=== PATIENT | female | born 1995 | race Caucasian/White ===

== ENCOUNTER 2019-09-30 14:58 | Inpatient (IN) | payer MEDICAID, SELFPAY ==
[2019-09-30] VITALS (20 sets, daily range): BP systolic 102–139; BP diastolic 60–86; PULSE 69–111; RESP 16–18; TEMP 36.6; O2SAT 90–100
--- NOTE | 2019-09-30 15:08 | PC.NURSE ---
Bedside US by nursing staff noted a breech presentation. Findings relayed to physician.Unofficial US performed by Ge Salgado RN.
--- NOTE | 2019-09-30 15:10 | PC.NURSE ---
Fundal height Fundal height obtained at this time. 28cm noted.
--- NOTE | 2019-09-30 15:11 | US_ITS ---
WS: [id number] US OB limited [id number] REASON FOR EXAM: no care FINDINGS: Breech presentation. No care. Normal amniotic fluid seen. The exam was terminated as Dr. Rahman decided to take the patient to surgery for now. Heart rate was 147 beats pe r minute US/US OB limited [id number] IMPRESSION: Breech presentation
--- NOTE | 2019-09-30 15:16 | PC.NURSE ---
US at bedside for presentation verification
--- NOTE | 2019-09-30 15:40 | ANES.PREANE2 ---
Pre-Anesthetic Assessment Pre-Anesthetic Assessment: Height/Weight: Pulse BP 105 H 139/80 09/30/19 15:04 09/30/19 15:04 Social: Social History: Alcohol (h/o meth use as of last night) and Tobacco Exam: Pre-Anes Outpt Exam: alert, oriented x 3, clear to auscultation bilaterally and regular rate & rhythm Airway: Submandibular: WNL Cervical ROM: WNL MP: 2 Dentition: Other History/ROS: No significant history except as noted Pulmonary: Pulmonary: None reported CV/HEM: CV/HEM: None reported : : None reported Hepatic: Hepatic: None reported GI: GI: None reported Metabolic: Metabolic: DM Musc/skel: Musc/skel: None reported Neuropsych: Neuropsych: None reported Anesthetic Plan: ASA status: 3E Anesthesia: General Risk of > 500 ml blood loss (7ml/kg in children): Yes, adequate IV access and fluids planned Data Anesthesia Cardiac Studies: No Data to Display
[2019-09-30 15:56] LABS: Hepatitis B Surface Antigen Non-Reactive (Nonreactive)
--- NOTE | 2019-09-30 16:04 | PC.NURSE ---
Verbal consent to give updates to Blanca Buck. Pt was not under anesthesia at this time.
[2019-09-30 16:12] LABS: Rapid Plasma Reagin Syphilis Nonreactive (Nonreactive)
[2019-09-30 16:13] LABS: Rubella IgG 35.7 IU/mL (0.0-9.0)
[2019-09-30 16:34] LABS: Hepatitis B Surface Antigen Non-Reactive (Nonreactive)
--- NOTE | 2019-09-30 16:58 | PM.HP ---
Providers/Chief Complaint Admitting Physician: Hebert Rahman MD Chief Complaint: OB TRIAGE History of Present Illness Tish Buck is a 23 year old with an unknown due date. The patient believes she is 5 to 6 months along but has not sought care. Her is complicated by no care, methamphetamine use during including the day prior to admission, type 2 diabetes mellitus not on medications, borderline personality disorder, history of -induced hypertension, history of labor, now with labor, history of shoulder dystocia, history of hemorrhage. The patient presented to labor and delivery triage due to painful contractions that started on the evening of 09/29/2019. The patient admitted to using methamphetamines on 09/29/2019. The patient's contractions continued to worsen and the patient presented on the afternoon of 09/30/2019. At that time she was 6 cm dilated with a bulging bag and in the breech position. The patient was having contractions every 2 to 3 minutes and writhing in pain with them. The patient denies any cough, chest pain, fevers, dysuria, leakage of fluid. She has had some bloody show. Review of Systems General: Reports: Other (Limited due to pain secondary to contractions.) PFSH Acute PFSH: Medical History (Updated 09/30/19 @ 17:11 by Hebert Rahman MD) Borderline personality disorder G tube feedings Social History (Updated 09/30/19 @ 17:09 by Hebert Rahman MD) Smoking and tobacco status: former smoker Alcohol intake: unknown Substance/Drug Use: current Substance/Drug use type: Amphetamines Vitals/I&O/Wt Last Vital Signs Pulse 105 H 09/30/19 15:04 BP 139/80 09/30/19 15:04 Physical Exam Narrative: EXAM NARRATIVE: General: Alert and oriented x3, in significant pain, difficult to get to focus and to redirect. Cardiac: Regular rate and rhythm without murmurs Lungs: Clear to auscultation bilaterally without wheezes, crackles or rhonchi Abdomen: Soft, significant tenderness to palpation of the uterus, fundus is 32 cm. Extremities: Trace edema in the bilateral lower extremities A&P Assessment and plan (1) Diabetes mellitus: Status: Acute (2) induced hypertension: Status: Acute (3) labor: Status: Acute (4) Methamphetamine abuse: Status: Acute (5) Intrauterine : Status: Acute (6) Breech presentation: Status: Acute Additional A&P Information Tish Buck is a 23 year old with an unknown due date. The patient believes she is 5 to 6 months along but has not sought care. Her is complicated by no care, methamphetamine use during including the day prior to admission, type 2 diabetes mellitus not on medications, borderline personality disorder, history of -induced hypertension, history of labor, now with labor, history of shoulder dystocia, history of hemorrhage. The patient is 5 to 6 cm dilated upon admission and royal every 2 to 3 minutes. She is extremely uncomfortable and showing signs of being in active labor. The infant is in the breech position and there is concern that once her water breaks, the infant will descend rapidly. It was difficult to get the patient to redirect and focus, and she began trying to push. With concern for a breech delivery, it was felt best to proceed with section due to the patient being in labor. A quick bedside ultrasound confirmed breech position and showed abundant fluid. The patient could not tolerate further pressure on her uterus to get further dating measurements. The patient was in agreement with the current plan of care. All questions were answered. Attestations Medical Necessity Statement*: The patient will be here for greater than 2 midnights due to routine intrapartum and management of section. 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
[2019-09-30 17:04] LABS: Amphetamines Screen Urine Positive (Negative); Barbiturates Screen Urine Negative (Negative); Benzodiazepines Screen Urine Negative (Negative); Cocaine Screen Urine Negative (Negative); Opiate Screen Urine Negative (Negative); PCP Screen Urine Negative (Negative); THC Screen Urine Negative (Negative)
--- NOTE | 2019-09-30 17:13 | PC.NURSE ---
In PACU, pt resting,respirations even, non-labored.pt sleeping.
--- NOTE | 2019-09-30 17:21 | PM.OP ---
Operative Report Date of procedure: September 30, 2019 Pre-op Diagnosis: 1. Intrauterine at approximately 32 weeks gestation 2. labor 3. Breech presentation 4. No care 5. Type 2 diabetes mellitus without treatment 6. Methamphetamine abuse 7. History of hemorrhage 8. History of shoulder dystocia 9. Borderline personality disorder Post-op Diagnosis: 1. Intrauterine status post primary low transverse section at approximately 32 weeks gestation 2. labor 3. Breech presentation 4. No care 5. Type 2 diabetes mellitus without treatment 6. Methamphetamine abuse 7. History of hemorrhage 8. History of shoulder dystocia 9. Borderline personality disorder 10. Delivery of live infant male Procedure Done: Primary low transverse section Specimens removed/disposition: Placenta sent to pathology Surgeon: Hebert Rahman Anesthesia: General Estimated blood loss (mL): 600 IV fluids (mL): 1,800 Complications: None Condition: stable Brief History: Tish Buck is a 23 year old G3 now P1112 with an unknown due date. The patient believes she is 5 to 6 months along but has not sought care due to having a warrant out for her arrest. Her is complicated by no care, methamphetamine use during including the day prior to admission, type 2 diabetes mellitus not on medications, borderline personality disorder, history of -induced hypertension, history of labor, now with labor, history of shoulder dystocia, history of hemorrhage. The patient presented to labor and delivery triage due to painful contractions that started on the evening of 09/29/2019. The patient admitted to using methamphetamines on 09/29/2019. The patient's contractions continued to worsen and the patient presented on the afternoon of 09/30/2019. At that time she was 6 cm dilated with a bulging bag and in the breech position. The patient was having contractions every 2 to 3 minutes and writhing in pain with them. Due to concern for rapid labor and breech presentation, it was felt best to proceed with emergent section. The patient was in agreement with the plan of care. Procedure: After informed consent was obtained, the patient was taken to the operating room and the patient was prepped and draped in normal sterile fashion in dorsal supine position. General anesthesia was given and adequate anesthesia was confirmed. At 15:33 PM on 09/30/2019, a Pfannenstiel skin incision was made and carried through to the underlying layer of fascia using a scalpel. The fascial incision was then extended laterally using curved Mayos. The fascia was then grasped with Jennifer clamps and the underlying rectus muscles were dissected off taking care to avoid injury to the underlying tissues. The peritoneum was entered bluntly with one digit. It was then bluntly. The bladder blade was placed and the vesicouterine peritoneum was well below the lower uterine segment of the uterus. The uterine incision was made in the lower uterine segment in a transverse fashion with the scalpel at 1535 on 09/30/2019. The amniotic membrane was entered bluntly and a large amount of clear fluid was noted. The infant was in the breech position. The infant's breech was delivered without difficulty. The right arm was then swept inwardly and delivered, followed by the left arm and the head all at once. The delivered easily and atraumatically.. There was no nuchal cord. The mouth and nose were suctioned. The had good tone upon delivery. The cord was clamped and cut and the was handed to the awaiting pediatric nurses and Dr. Del Rio. Traction was placed on the umbilical cord and the umbilical cord from the placenta. The placenta was then manually expressed. The uterus was then exteriorized from the abdomen and a wet lap was used to clear the uterus of clots and debris. The bladder blade was reinserted and the uterine incision was closed using 0 Vicryl in a running locking fashion. A second layer of the same suture was used in the same manner. Excellent hemostasis was obtained. Next the posterior cul-de-sac was inspected and was cleared of any blood. The uterus was then placed back into the abdomen. The gutters were cleared of any further clots and debris and the uterine incision was again inspected and hemostasis was noted. The subfascial tissue was inspected for hemostasis and the peritoneum was closed using 2-0 plain in a running fashion. The fascia was then reapproximated using 0 Vicryl in a running fashion. Subcutaneous tissue was inspected for hemostasis. Yung's fascia was then reapproximated using 3-0 plain in a running fashion. Good hemostasis was noted. The subcutaneous tissue was then reapproximated using a subcuticular stitch. The patient tolerated the procedure well and was recovered in stable condition. Estimated blood loss was 600 mL. Urine in the Queen catheter was clear. The patient was recovered in good condition.
[2019-09-30 17:52] LABS: Basophils % 0.4 %; Eosinophils % 0.3 %; Hemoglobin 12.2 g/dL (11.5-15.3); Lymphocytes # 1.7 10^3/uL (0.8-4.8); Lymphocytes % 19.6 %; Mean Corpuscular HGB Conc 32.1 g/dL (30.0-36.0); Mean Corpuscular Hemoglobin 28.6 pg (28.0-34.0); Mean Corpuscular Volume 89.2 fL (81-99); Monocytes # 0.7 10^3/uL (0.2-0.9); Monocytes % 8.2 %; Neutrophils # 6.3 10^3/uL (1.8-7.7); Neutrophils % 71.2 %; Nucleated Red Blood Cells % 0 %; Platelet Count 230 10^3/cmm (130-400); Red Blood Count 4.26 10^6/uL (4.1-5.3); Red Cell Distribution Width 12.4 % (12.1-15.1); White Blood Count 8.9 10^3/uL (4.0-10.0)
[2019-09-30] MEDS: dextrose 5%-lactated ringers 1,000 ML 125 ML IV (18:04)
[2019-09-30] MEDS: morphine 4 mg/mL SDV 1 mL IVP ×2 (18:11→21:39)
[2019-09-30 18:14] LABS: Estmated Average Glucose 269
[2019-09-30 18:53] LABS: HIV 1 & 2 Antibody Non-Reactive (Non-Reactiv); HIV 1 & 2 Antigen Non-Reactive (Non-Reactiv)
[2019-09-30 23:06] LABS: Glucose Point of Care 241 mg/dL (70-110)
--- NOTE | 2019-09-30 23:30 | PC.NURSE ---
Patient stated I don't want it when this nurse notified her of her insulin dose. Educated on benefits of taking her insulin. Patient stated a second time I don't want it
[2019-10-01 00:45] VITALS: BP 101/60; PULSE 104; RESP 16
[2019-10-01] MEDS: dextrose 5%-lactated ringers 1,000 ML 125 ML IV ×2 (04:44→08:05)
[2019-10-01 06:19] LABS: Hematocrit 31.4 % (37.0-47.0); Hemoglobin 10.1 g/dL (11.5-15.3); Mean Corpuscular HGB Conc 32.2 g/dL (30.0-36.0); Mean Corpuscular Hemoglobin 28.5 pg (28.0-34.0); Mean Corpuscular Volume 88.5 fL (81-99); Mean Platelet Volume 10.5 fL (7.4-10.4); Platelet Count 204 10^3/cmm (130-400); Red Blood Count 3.55 10^6/uL (4.1-5.3); Red Cell Distribution Width 12.3 % (12.1-15.1); White Blood Count 13.6 10^3/uL (4.0-10.0)
[2019-10-01 07:02] LABS: Glucose Point of Care 200 mg/dL (70-110)
[2019-10-01] MEDS: ferrous sulfate EC 325 mg Tablet PO ×2 (08:03→17:34)
[2019-10-01] MEDS: ketorolac 30 mg/mL INJ IVP (08:03)
[2019-10-01] MEDS: prenatal vitamin Capsule 1 CAP PO (08:03)
[2019-10-01] MEDS: metoclopramide 5 mg/mL SDV 2 mL 10 MG IV (08:03)
[2019-10-01] MEDS: famotidine 20 mg/2 mL INJ IVP (08:04)
[2019-10-01] MEDS: lactated ringers 1,000 ML 125 ML IV (08:05)
[2019-10-01] MEDS: citric acid-sodium citrate 30 mL UDC PO (08:05)
--- NOTE | 2019-10-01 08:28 | P.PN_ITS ---
Subjective Subjective: Interval history: The patient has been having some pain with her incision site. She has not requested a significant number of pain medications though. The patient has declined any insulin injections. The patient is also declined fundal massage. She has not allowed nursing to touch her abdomen on multiple occasions. Vitals/I&O/Wt Last Vital Signs Temp 97.9 F 09/30/19 17:20 Pulse 104 H 10/01/19 00:45 Resp 16 10/01/19 00:45 BP 101/60 10/01/19 00:45 Pulse Ox 97 09/30/19 18:11 09/30/19 10/01/19 10/01/19 22:59 06:59 14:59 Intake Total 1800 / 1800 1000 / 2800 Output Total 760 / 760 600 / 1360 Balance 1040 / 1040 400 / 1440 Physical Exam Narrative: EXAM NARRATIVE: General: Alert, somnolent Cardiac: Regular rate and rhythm without murmurs Lungs: Clear to auscultation bilaterally without wheezes, crackles or rhonchi Abdomen: Soft, moderate tenderness over the uterus. Uterus is firm and 1 cm below the umbilicus. Incision site is clean and dry without signs of infection or dehiscence. Extremities: Trace edema in the bilateral lower extremities Urinary Catheter Management^: Queen: Cath Placed During This Visit: yes Reason for Continuing Indwelling Catheter: Required Immobilization for Trauma or Surgery or Anesthesia Urinary Catheter Date of Insertion: 09/30/19 Urinary Catheter Time of Insertion: 15:30 Data : 10/01/19 06:00 A&P Assessment and plan (1) Diabetes mellitus: Status: Acute (2) induced hypertension: Status: Acute (3) labor: Status: Acute (4) Methamphetamine abuse: Status: Acute (5) Intrauterine : Status: Acute (6) Breech presentation: Status: Acute Additional A&P Information Tish Buck is a 23 year old G3 now P1112 with an unknown due date. The patient believes she is 5 to 6 months along but has not sought care. Her is complicated by no care, methamphetamine use during including the day prior to admission, type 2 diabetes mellitus not on medications, borderline personality disorder, history of -induced hypertension, history of labor, now with labor, history of shoulder dystocia, history of hemorrhage, now status post primary low transverse section for labor with infant in the breech position. The patient seems to be doing well overall and is not showing signs of significant complications. She has been refusing multiple areas of care including fundal massage. She allowed me to push on her uterus this time. Her uterus does seem a little bit on the higher side. We will need to continue to encourage fundal massage in case of blood clot. The patient has not passed any gas yet. We will watch for this prior to starting feeds. Overall the patient's pain is controlled well. She has not been asking for frequent pain medications at this time. She is not showing signs of withdrawal actively, however we will need to watch for this this afternoon as well. Plan for discharge home tomorrow if she continues to do well. Attestations Medical Necessity Statement*: The patient continues need inpatient care and will be here for greater than 2 midnights. 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
--- NOTE | 2019-10-01 09:27 | PC.NURSE ---
AT BEDSIDE EXPLAINING LIMITATIONS. PATIENT VERY RELUCTANT TO ALLOW EXAMINATION OF ABD OR TO BE TOUCHED. DR WOULD LIKE HER TO GET UP AND WALK BUT SHE IS STILL DROWSY , NOT YET AGGITATED BUT SENSITIVE.
--- NOTE | 2019-10-01 09:32 | PC.NURSE ---
FUNDUS IS FIRM BUT HIGH AT LEVEL OF UMBILICUS.
[2019-10-01 10:00] VITALS: BP 111/66; PULSE 86; RESP 16; TEMP 36.8
[2019-10-01 12:09] LABS: Glucose Point of Care 192 mg/dL (70-110)
[2019-10-01 16:48] LABS: Glucose Point of Care 321 mg/dL (70-110)
[2019-10-01 16:55] VITALS: BP 103/68; PULSE 118; RESP 19; TEMP 36.9
[2019-10-01 17:34] VITALS: RESP 17
[2019-10-01] MEDS: oxyCODONE-APAP 5-325 mg Tablet PO (17:34)
[2019-10-01] MEDS: docusate sodium 100 mg Capsule PO (17:34)
[2019-10-01 21:50] VITALS: BP 110/71; PULSE 95; RESP 16; TEMP 37
[2019-10-01 22:20] LABS: Glucose Point of Care 127 mg/dL (70-110)
[2019-10-02 04:13] VITALS: BP 110/71; PULSE 93; RESP 16; TEMP 36.8; O2SAT 98
[2019-10-02 06:23] LABS: Glucose Point of Care 103 mg/dL (70-110)
[2019-10-02 08:17] VITALS: RESP 16
[2019-10-02] MEDS: prenatal vitamin Capsule 1 CAP PO (08:17)
[2019-10-02] MEDS: ferrous sulfate EC 325 mg Tablet PO (08:17)
[2019-10-02] MEDS: docusate sodium 100 mg Capsule PO (08:17)
[2019-10-02] MEDS: oxyCODONE-APAP 5-325 mg Tablet PO (08:17)
--- NOTE | 2019-10-02 08:27 | PC.NURSE ---
ENCOURAGED AMBULATION.
--- NOTE | 2019-10-02 08:32 | P.DS_ITS ---
Discharge Providers Date of Admission: 09/30/19 14:58 Date of Discharge: October 02, 2019 Attending Provider at Admission: Hebert Rahman MD Attending Provider at Discharge: Hebert Rahman MD Diagnoses at Discharge Discharge Diagnosis (1) Diabetes mellitus: Status: Acute (2) induced hypertension: Status: Acute (3) labor: Status: Acute (4) Methamphetamine abuse: Status: Acute (5) Intrauterine : Status: Acute (6) Breech presentation: Status: Acute Other Information Additional DC diagnoses/information: Tish Buck is a 23 year old G3 now P11 12 with an unknown due date. The patient believes she is 5 to 6 months along but has not sought care due to having a warrant out for her arrest. Her is complicated by no care, methamphetamine use during including the day prior to admission, type 2 diabetes mellitus not on medications, borderline personality disorder, history of -induced hypertension, history of labor, now with labor, history of shoulder dystocia, history of hemorrhage. Reason for Visit Reason for Visit: OB TRIAGE Hospital Course Hospital Course: Tish Buck is a 23 year old G3 now P1112 with an unknown due date. The patient believes she is 5 to 6 months along but has not sought care due to having a warrant out for her arrest. Her is complicated by no care, methamphetamine use during including the day prior to admission, type 2 diabetes mellitus not on medications, borderline personality disorder, history of -induced hypertension, history of labor, now with labor, history of shoulder dystocia, history of hemorrhage. The patient presented to labor and delivery triage due to painful contractions that started on the evening of 09/29/2019. The patient admitted to using methamphetamines on 09/29/2019. The patient's contractions continued to worsen and the patient presented on the afternoon of 09/30/2019 a few hours after being bailed out of the [facility] retirement. At that time she was 6 cm dilated with a bulging bag and in the breech position. The patient was having contractions every 2 to 3 minutes and writhing in pain with them. Due to concern for rapid labor and breech presentation, it was felt best to proceed with emergent section. The patient was in agreement with the plan of care. The patient had a primary low transverse section with general anesthesia. The patient did not have any complications. Her pain has been well controlled. Her bleeding is decreasing well. She is ambulating, voiding, passing gas and tolerating food by mouth. Currently the patient is doing well. The patient will plan to meet with her aerospace engineer officer armament tomorrow. She will fo llow-up with me in 1 week. Routine post care instructions were discussed. All questions were answered. The patient is in agreement with discharge home at this time. Physical Exam Narrative: EXAM NARRATIVE: General: Alert, somnolent Cardiac: Regular rate and rhythm without murmurs Lungs: Clear to auscultation bilaterally without wheezes, crackles or rhonchi Abdomen: Soft, moderate tenderness over the uterus. Uterus is firm and 1 cm below the umbilicus. Incision site is clean and dry without signs of infection or dehiscence. Extremities: Trace edema in the bilateral lower extremities Urinary Catheter Management^: Queen: Cath Placed During This Visit: yes, but has since been removed by the nurse Reason for Continuing Indwelling Catheter: Perioperative Use in Selected Surgeries Urinary Catheter Date of Insertion: 09/30/19 Urinary Catheter Time of Insertion: 15:30 Date Urinary Catheter Removed: 10/01/19 Time Urinary Catheter Discontinued: 15:00 Discharge Data Data Completed and Pending: Completed Studies During Hospitalization Category Date Time Status US OB limited [id number] Stat Ultrasound 09/30/19 15:11 Completed Pending at discharge Category Date Time Status Pathology: Surgic al [PTH] Routine Pth 09/30/19 17:18 Ordered Pathology: Surgic al [PTH] Routine Pth 09/30/19 20:13 Received Labs from last 24 hours 10/02/19 10/01/19 10/01/19 06:20 22:16 16:45 POC Glucose 103 127 321 10/01/19 11:33 POC Glucose 192 Vitals: Last Vital Signs Temp 98.2 F 10/02/19 04:13 Pulse 93 10/02/19 04:13 Resp 16 10/02/19 08:17 BP 110/71 10/02/19 04:13 Pulse Ox 98 10/02/19 04:13 Discharge Plan Discharge Patient Disposition: Home, Self-Care Condition: Good Prescriptions: New oxycodone-acetaminophen 5-325 mg Tablet 1 tab PO Q6H PRN (Reason: Moderate To Severe Pain) Qty: 10 RF: 0 -U 106.5-1 mg Capsule 1 cap PO BREAKFAST Qty: 30 RF: 0 ibuprofen 800 mg Tablet 800 mg PO TID Qty: 60 RF: 0 ferrous sulfate 325 mg (65 mg iron) Tablet,Delayed Release (Dr/Ec) 325 mg PO BIDWM Qty: 30 RF: 0 metformin 500 mg tablet 500 mg PO BID Qty: 60 RF: 0 Discharge Orders: Discharge Order (Routine); Ordered 10/02/19 Ordered By: Hebert Rahman Referrals: Hebert Rahman MD [Physician] - 1 week Discharge Diet: Advance as tolerated Discharge Activity: Limit activity as instructed Activity Restrictions/Additional Instructions: Nothing per vagina for 6 weeks. No baths. Showers are okay. If you have any concern for infection along your incision site, please seek immediate medical attention. If your bleeding significantly increases, please go to the ER for further evaluation. Do not lift anything over 10 pounds for the first 3 weeks, then gradually increase. Discharge Attestations Time Spent in Discharge Care*: greater than 30 min Quality Metrics Clinical Quality Measures During this hospital stay, did patient experience: None Coding Level of Care Code Acute Manager [employer] for [facility] Fwd Diagnoses Diabetes mellitus E11.9 induced hypertension O13.9 labor O60.00 Methamphetamine abuse F15.10 Intrauterine Z34.90 Breech presentation O32.1XX0
[2019-10-02 09:10] VITALS: BP 124/84; PULSE 107; RESP 15; TEMP 37.2
[2019-10-02 10:02] VITALS: BP 123/79; PULSE 66; RESP 18; TEMP 37
[2019-10-02 10:04] VITALS: BP 123/79; PULSE 66; RESP 18; TEMP 37
== END 2019-10-02 10:15 | disposition home or self-care (01) | DRG 787 ==
LOC: OPOB 15:40 → OBGYN 15:40
PROVIDERS: Admitting Provider Family Medicine; Visit Provider Family Medicine
PROC: 10D00Z1 Extraction of Products of Conception, Low, Open Approach (ICD-10-PCS; CPT 59514; principal; 2019-09-30 15:25)
DX: O60.14X0 Preterm labor third trimester with preterm delivery third trimester, not applicable or unspecified (principal); O99.324 Drug use complicating childbirth; F15.10 Other stimulant abuse, uncomplicated; O24.92 Unspecified diabetes mellitus in childbirth; O32.1XX0 Maternal care for breech presentation, not applicable or unspecified; O16.4 Unspecified maternal hypertension, complicating childbirth; Z3A.32 32 weeks gestation of pregnancy; Z37.0 Single live birth; O75.89 Other specified complications of labor and delivery; F60.3 Borderline personality disorder; Z87.891 Personal history of nicotine dependence
CPT/HCPCS: 12345; 36415; 36416; 51702; 59409; 76815; 80306; 82962; 83036; 85025; 85027; 86592; 86762; 86850; 86900; 87340; 87491; 87591; 87806; 88305; 96372; 96375; 99211; J0330; J0690; J1815; J1885; J2001; J2250; J2270; J2405; J2704; J2765; J3010; J3490; J7030

== ENCOUNTER 2019-11-04 15:00 | Emergency (ER) | payer MEDICAID, SELFPAY ==
[2019-11-04 15:05] VITALS: BP 148/93; PULSE 106; RESP 14; TEMP 37.5; O2SAT 98; BMI 21.0
[2019-11-04 16:25] VITALS: BP 130/98; PULSE 104; RESP 18; O2SAT 99
--- NOTE | 2019-11-04 16:35 | ED_ITS ---
Documented by User: DARIEL Sabillon 11/06/19 07:03 HPI - Female Genitourinary General: Chief complaint: General Medical Stated complaint: POST OP PROBLEMS Time Seen by Provider: 11/04/19 16:16 Source: patient Mode of arrival: ambulatory Limitations: no limitations History of Present Illness: HPI Narrative: Patient is a 23-year-old female who presents to ED today with multiple medical complaints. First of all she tells me she believes her section is not healing fully. Patient had a section approximately 5 weeks ago. She states initially she had an area on the left side that seem to be dehisced and was draining however this has healed but now reports an area to the right side of her incision doing the same. She is reporting several small red bumps to her pubic region and abdomen from shaving. She is complaining of vaginal discharge and vaginal odor that she states is abnormal. She states initially following the section she had a heavy period that eventually turned into a light brown discharge. She states since then she has noticed a white/yellow odorous discharge. She states she is sexually active with one partner and has not had any new partners in the past several months. She states she is not concerned for STDs at this time. She does not complain of any dysuria. She does report some urinary urgency and hesitancy. Patient is not having any abdominal pain or lower pelvic pain. She has not been running fevers. Patient admits to recent methamphetamine use. MD elicited complaint: vaginal discharge and other (c section wound complaint ) Onset (ago): day(s) Associated symptoms: Reports vaginal discharge; Deny abdominal pain, headache(s) or nausea Review of Systems Const: Denies: fever(s), chills, body aches, change in appetite, change in weight, fatigue or malaise GI: Denies: abdominal pain, nausea, vomiting or diarrhea : Reports: difficulty voiding, urinary urgency, urinary hesitancy, vaginal odor and vaginal discharge; Denies: flank pain, dysuria, urinary frequency, dribbling, urinary incontinence, vaginal bleeding or pelvic pain Musc: Denies: neck pain or back pain Skin/Breast: Reports: rash Neuro: Denies: headache(s), numbness in extremities, weakness in extremities or sensory changes PFS ED PFSH: Medical History Borderline personality disorder G tube feedings Social History Smoking and tobacco status: former smoker Alcohol intake: unknown Physical Exam Const: COMMON NORMALS: no acute distress, average body habitus, patient oriented x3, no limitations, healthy appearing, alert and well nourished OTHER: psychomotor agitation consistent with her meth use Resp: COMMON NORMALS: normal respiratory effort and clear to auscultation bilaterally AUSCULTATION: clear to auscultation bilaterally Cardio: COMMON NORMALS: regular rate and regular rhythm RATE: regular rate RHYTHM: regular rhythm GI: COMMON NORMALS: Normal to inspection, nondistended, normoactive bowel sounds present, Soft to palpation, non-tender, No hepatosplenomegaly present and no masses PALPATION: Yes Soft to palpation and Yes No hepatosplenomegaly present OTHER: Patient has fully healed section. There is one small 1 cm area to the furthest right side of the incision that seems to be very mildly dehisced with a very small amount of discharge present; she has folliculitis lesions from shaving to her pubic region and abdomen; non-surgical abdominal exam : COMMON NORMALS: Yes no CVA tenderness BLADDER/KIDNEY EXAM: Yes no CVA tenderness Back/Pelvis: COMMON NORMALS: no CVA tenderness Neuro: COMMON NORMALS: patient oriented x3 SENSORIUM/ORIENTATION: Yes alert Skin: OTHER: see abdomen assessment Course Vital Signs: Vital signs: Vital Signs Temperature 99.5 F 11/04/19 15:05 Pulse Rate 96 11/04/19 17:51 Respiratory Rate 16 11/04/19 17:51 Blood Pressure 128/98 11/04/19 17:51 Pulse Oximetry 96 11/04/19 17:51 MDM - Female MDM Narrative: Medical decision making narrative: Patient states she does not want a pelvic exam and/or STD testing today. She states she will get these [facility]. Given the fact that patient section was approximately 5 weeks ago, the lack of fevers, and no/little pelvic pain my suspicion for endometritis is very low. She was counselled on risks of not doing pelvic exam, STD testing, labs and she seems to understand these. She is agreeable to UA which has been collected-pending a UA/ test results so care will be transferred to Hebert Barrett PA-C. Lab Data: Labs: Lab Results 11/04/19 11/04/19 Range/Units 16:40 17:08 HCG, Qual Negative (Negative) Urine Color Yellow (Yellow) Urine Appearance Clear (CLEAR) Urine pH 6 (5-7) Ur Specific Gravit y 1.015 (1.005-1.030) Urine Protein Neg (Negative) Urine Glucose (UA) 4+ H (Normal) Urine Ketones Negative (Negative) Urine Blood Neg (Negative) Urine Nitrate Negative (Negative) Urine Bilirubin Neg (NEGATIVE) Urine Urobilinogen Neg (Negative) mg/dL Ur Leukocyte Ilana ase Negative (Negative) Discharge Plan Discharge Patient Disposition: Home, Self-Care Clinical Impression: Folliculitis Condition: Stable Prescriptions: New Augmentin 500-125 mg tablet 1 tab PO BID 7 Days Qty: 14 RF: 0 No Action ferrous sulfate 325 mg (65 mg iron) Tablet,Delayed Release (Dr/Ec) 325 mg PO BIDWM Qty: 30 RF: 0 -U 106.5-1 mg Capsule 1 cap PO BREAKFAST Qty: 30 RF: 0 metformin 500 mg tablet 500 mg PO BID Qty: 60 RF: 0 sertraline 25 mg Tablet 25 mg PO DAILY RF: 0 ibuprofen 800 mg tablet 800 mg PO TID PRN (Reason: Pain) RF: 0 Discharge Orders: Discharge Order (Routine); Ordered 11/04/19 Ordered By: Hebert Barrett Referrals: Hebert Rahman MD [Primary Care Provider] - Discharge Diet: Regular Discharge Activity: Resume usual activity Activity Restrictions/Additional Instructions: Follow-up with medical provider as directed in 7-10 days. Take medications as prescribed. Return to the ER or your medical provider if condition worsens. Please read and understand discharge instructions. If any questions, please ask. Discharge Date/Time: 11/04/19 17:52 Sign Out Sign Out Data: Patient Sign Out occurred on 11/04/19 at 17:17. Patient's care was discussed, and care was transferred from to DARIEL Lovell. Coding Level of Care Code ED Software Configuration Engineer for Chg Fwd Exam Detailed Documented by User: DARIEL Lovell 11/05/19 02:25 HPI - Female Genitourinary General: Chief complaint: General Medical Stated complaint: POST OP PROBLEMS Time Seen by Provider: 11/04/19 16:16 PFSH ED PFSH: Medical History Borderline personality disorder G tube feedings Social History Smoking and tobacco status: former smoker Alcohol intake: unknown Course Vital Signs: Vital signs: Vital Signs Temperature 99.5 F 11/04/19 15:05 Pulse Rate 96 11/04/19 17:51 Respiratory Rate 16 11/04/19 17:51 Blood Pressure 128/98 11/04/19 17:51 Pulse Oximetry 96 11/04/19 17:51 MDM - Female MDM Narrative: Medical decision making narrative: I assumed care of patient from Gayatri Raffi around 5 PM today. Gayatri told me the history and physical exam findings and that she is suspicious of patient having some folliculitis based off of physical exam and that she has a very low suspicion for endometritis. UA was unremarkable and did not show any UTI. Patient diagnosed with folliculitis and discharged with a prescription for Augmentin. She was told to follow-up with PCP in 7 to 10 days for reevaluation. Return to ED if symptoms worsen. Patient understood and agreed with plan. Lab Data: Labs: Lab Results 11/04/19 11/04/19 Range/Units 16:40 17:08 HCG, Qual Negative (Negative) Urine Color Yellow (Yellow) Urine Appearance Clear (CLEAR) Urine pH 6 (5-7) Ur Specific Gravit y 1.015 (1.005-1.030) Urine Protein Neg (Negative) Urine Glucose (UA) 4+ H (Normal) Urine Ketones Negative (Negative) Urine Blood Neg (Negative) Urine Nitrate Negative (Negative) Urine Bilirubin Neg (NEGATIVE) Urine Urobilinogen Neg (Negative) mg/dL Ur Leukocyte Ilana ase Negative (Negative) Discharge Plan Discharge Patient Disposition: Home, Self-Care Clinical Impression: Folliculitis Condition: Stable Prescriptions: New Augmentin 500-125 mg tablet 1 tab PO BID 7 Days Qty: 14 RF: 0 No Action ferrous sulfate 325 mg (65 mg iron) Tablet,Delayed Release (Dr/Ec) 325 mg PO BIDWM Qty: 30 RF: 0 -U 106.5-1 mg Capsule 1 cap PO BREAKFAST Qty: 30 RF: 0 metformin 500 mg tablet 500 mg PO BID Qty: 60 RF: 0 sertraline 25 mg Tablet 25 mg PO DAILY RF: 0 ibuprofen 800 mg tablet 800 mg PO TID PRN (Reason: Pain) RF: 0 Discharge Orders: Discharge Order (Routine); Ordered 11/04/19 Ordered By: Hebert Barrett Referrals: Hebert Rahman MD [Primary Care Provider] - Discharge Diet: Regular Discharge Activity: Resume usual activity Activity Restrictions/Additional Instructions: Follow-up with medical provider as directed in 7-10 days. Take medications as prescribed. Return to the ER or your medical provider if condition worsens. Please read and understand discharge instructions. If any questions, please ask. Discharge Date/Time: 11/04/19 17:52 Sign Out Sign Out Data: Patient Sign Out occurred on 11/04/19 at 17:17. Patient's care was discussed, and care was transferred from to DARIEL Lovell. Coding Level of Care Code ED Software Configuration Engineer for Jesusg Fwd Exam Detailed
[2019-11-04 16:58] LABS: HCG, Serum Qual Negative (Negative)
[2019-11-04 17:11] LABS: Add Urine Microscopic? NO
[2019-11-04 17:40] LABS: Protein Urine Neg (Negative); Specific Gravity, Urine 1.015 (1.005-1.030); Urine Appearance Clear (CLEAR); Urine Color Yellow (Yellow); pH Urine 6 (5-7)
[2019-11-04 17:41] LABS: Bilirubin Urine Neg (NEGATIVE); Blood Urine Neg (Negative); Glucose Urine UA 4+ (Normal); Ketones Urine Negative (Negative); Leukocyte Esterase Urine Negative (Negative); Nitrate Urine Negative (Negative); Urobilinogen Urine Neg (Negative)
[2019-11-04 17:51] VITALS: BP 128/98; PULSE 96; RESP 16; O2SAT 96
== END 2019-11-04 17:52 | disposition home or self-care (01) ==
PROVIDERS: Physician Assistant; Emergency Provider Physician Assistant; PCP Family Medicine
DX: L73.9 Follicular disorder, unspecified (principal); Z87.891 Personal history of nicotine dependence
CPT/HCPCS: 12345; 36415; 81003; 84703; 99281; 99282

== ENCOUNTER 2019-12-24 10:16 | Emergency (ER) | payer MEDICAID, SELFPAY ==
[2019-12-24 10:21] VITALS: BP 151/101; PULSE 102; RESP 16; TEMP 36.8; O2SAT 100; BMI 21.0
[2019-12-24 10:33] VITALS: BP 141/102; PULSE 110; RESP 17; O2SAT 97
[2019-12-24] MEDS: diphenhydrAMINE 50 mg/mL SDV 1mL IVP (10:39)
[2019-12-24] MEDS: sodium chloride 0.9% 500 ML 999 ML IV (10:39)
[2019-12-24] MEDS: dexamethasone 4 mg/mL INJ 8 MG IVP (10:41)
[2019-12-24] MEDS: famotidine 20 mg/2 mL INJ 40 MG IVP (10:44)
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
--- NOTE | 2019-12-24 11:12 | PC.NURSE ---
REPORT RECEIVED REPORT FROM [facility].
--- NOTE | 2019-12-24 11:45 | PC.NURSE ---
WHILE AT BEDSIDE PT IS IN NAD. PT DENIES ANY FURTHER NEEDS AT THIS TIME.
[2019-12-24 12:00] VITALS: BP 132/94; PULSE 106; RESP 20; O2SAT 100
--- NOTE | 2019-12-26 15:41 | DCPLANNER ---
banking center manager had message to speak with patient about getting established with a primary care physician. banking center manager called [phone], was told that patient was not there, left a message for patient to return window caser phone call.
== END 2019-12-24 12:35 | disposition home or self-care (01) ==
PROVIDERS: Emergency Provider Nurse Practitioner Family; PCP Family Medicine
DX: L24.7 Irritant contact dermatitis due to plants, except food (principal); T78.40XA Allergy, unspecified, initial encounter; Z87.891 Personal history of nicotine dependence
CPT/HCPCS: 12345; 96374; 96375; 99283; J1100; J1200; J3490; J7040

== ENCOUNTER 2021-09-12 20:09 | Inpatient (IN) | payer MEDICAID, SELFPAY ==
[2021-09-12] VITALS (61 sets, daily range): BP systolic 122–178; BP diastolic 81–108; PULSE 62–134; RESP 16; O2SAT 89–100
[2021-09-12] MEDS: lactated ringers 1,000 ML 125 ML IV (20:40)
[2021-09-12] MEDS: oxytocin 30 UNIT/500 ML BAG 600 UNIT IV (20:41)
--- NOTE | 2021-09-12 20:50 | P.HP_ITS ---
Providers/Chief Complaint Admitting Physician: Carol Macedo DO Primary IMPORT EXPORT COORDINATOR: None- no care Primary Care Provider: Hebert Rahman MD Chief Complaint: delivery HPI IMPORT EXPORT COORDINATOR History of Present Illness Tish Buck is a 25 year old female [id number] presenting as transfer from [facility] ED after today, 09/12/21 at 1716. PMHx type 2 DM, tobacco use, methamphetamine use, former . She denies hx of HTN or PIH. PSHx Csection, feeding tube as infant She reports current pain, denies JAMISON, SOB, changes in vision, RUQ pain. She reports LE swelling for the past several months- no recent increase. Reports hx of type 2 diabetes- diagnosed at age 12 but started on metformin at that time. Reports she has not managed her sugars well and was in the hospital at [facility] in June 2021 for DKA and was started on insulin at that time. Records reviewed from June 2021 admission reveals OBUS at 26 weeks and HgbA1c 12.2 during admission. Reports compliance with lantus 12u at bedtime and mealtime insulin with humalog up until about 1 week ago when she ran out of her lantus, but has continued with humalog. Denies any additional medications. Reports no care in this and has not seen a physician prior to this for some time either. Reports tobacco use 1/2 ppd and methamphetamine use throughout the . Last meth use about 1.5 weeks ago. Per ER report she presented with contractions starting around 3:30 AM and intensified around 8:30AM. she presented to ED around 4:00PM with contractions [id number] and report of SROM with clear fluid en route to ED. Reported FHTs 140s by BSUS and cephalic presentation. Initially transfer to our facility accepted at approx 4:24PM after reports of SVE 1-2cm dilated with contractions [id number] and VSS. Called again at approx 4:53 PM to report patient was delivering in ED at [facility]. Called again at approx 5:35PM to report without complication, placenta delivered intact and spontaneously, no vaginal lacerations, and bleeding was good with firm fundus. Delivery of female neon ate with Apgars reports 7 and 9. Of note on review of record appears pt BP ranged 120s-150s/60s-110s with 2 severe range BPs non-consecutive while in ED [facility]. Present Details : 4 Para: 3 care: none Abnormal OB US findings: US 07/11/21: 26w3d, HR 152, Single IUP, anterior fundal placenta, mild polyhydramnios NUBIA 22.3 Review of Systems Const: Denies: fever(s) Eyes: Denies: change in vision or blurry vision Card: Reports: edema; Denies: chest pain, palpitations or dyspnea on exertion Resp: Denies: dyspnea, productive cough or non-productive cough : Reports: genital lesions Neuro: Denies: headache(s), confusion or seizure-like activity Emanuel/Lymph: Denies: easy bruising or easy bleeding Medications/Allergies Home Medications Medication Instructions Recorded Confirmed Last Taken Type Lantus Solostar U-100 Insulin 12 09/13/21 Unknown History Novolog Flexpen U-100 Insulin 09/13/21 Unknown History Allergies Allergy/AdvReac Type Severity Reaction Status Date / Time No Known Allergies Allergy Verified 09/13/21 00:20 PFS IMPORT EXPORT COORDINATOR PFSH: Medical History Borderline personality disorder delivery delivered G tube feedings Social History (Updated 09/13/21 @ 00:22 by Carol Macedo DO) Smoking and tobacco status: current every day smoker Alcohol intake: unknown Substance/Drug Use: current Other details last substance use: Reports last use 1 week ago- methamphetamine Sexual History: Hx Sexually Transmitted Diseases: No STD History Comment: Denies hx of STDs History History History 4 Term 1 Miscarriages/Ectopic 1 2 Living Children 3 Other History: 1st delivery in 2016- Induced at 39 wks 2nd delivery at [facility] in 2019- due to breech presentation with labor 3rd delivery- delivery 09/12/21 with labor Vitals/I&O/Wt Last Vital Signs Pulse 117 H 09/12/21 20:46 BP 156/102 09/12/21 20:22 Pulse Ox 100 09/12/21 20:46 Physical Exam Const: COMMON NORMALS: patient oriented x3 and alert Resp: COMMON NORMALS: normal respiratory effort and clear to auscultation bilaterally Cardio: COMMON NORMALS: regular rhythm and No murmurs present (Cardio) OTHER: increased rate GI: COMMON NORMALS: Soft to palpation and non-tender : OTHER: left labial laceration- hemostatic, no vaginal sulcus laceration, intermittent slow vaginal trickle with uterine fundus moderately firm and becomes firm on fundal massage with noted cessation of vaginal bleeding after fundal massage Extremity: NARRATIVE EXTREMITY EXAM: BLE with trace pitting edema, no calf tenderness, no rash or erythematous skin changes BLE Neuro: COMMON NORMALS: patient oriented x3, moves all extremities and no focal motor deficits Psych: COMMON NORMALS: mental status grossly normal Data : 09/12/21 20:45 09/12/21 20:45 Results OB Labs Labs from [facility] 09/12/21 at 1620: Hgb 12.9 Hct 39.5 Plt 240 Sodium 134 Potassium 4.4 Creatinine 0.67 Glucose 118 Anion Gap 13 Hgb A1c 8.8 A&P Assessment and plan (1) Spontaneous vaginal delivery: 25yo G4 now P3 presenting after in [facility] ED with no care. labs ordered. Repeat CBC in AM. Vaginal exam with labial laceration not requiring repair. Due to moderately firm fundus- given pitocin IV- does not appear she received any pitocin in ED. Further care as below. Status: Acute (2) Pre-eclampsia, severe: BPs elevated on admission. Urine Pr/Cr ratio ordered. 2 severe BPs noted consecutively 178/92 and 173/98 at 2106 and 2120. Given 1 dose 20mg IV labetalol. At that time, discussed case with Dr. Barlow and CMP ordered. Plan to treat her pain with IV fentanyl 25mcg dose, monitor following BPs, and follow-up with results of Urine Pr/Cr ratio and CMP. Subsequently patient's repeat BPs 150s/90s and Urine Pr/Cr resulted at 0.9. Discussed results with Dr. Barlow who will consult for management of pre-eclampsia with severe features. I discussed this the patient including her diagnosis and need for treatment. Status: Acute (3) Type 2 diabetes mellitus: Uncontrolled. A1c 8.8 however initial blood glucose in ED 102 via fingerstick and 118 on BMP. Low-dose SSI q4hr with fingerstick glucose q4hr as patient will be NPO while on Magnesium IV. Hypoglycemic protocol. Repeat CMP in AM. Status: Acute (4) (vaginal after ): Status: Acute (5) Methamphetamine abuse: UDS ordered. Status: Acute (6) Hyponatremia: Mild. Recheck on CMP in AM. Status: Acute Attestations Medical Necessity Statement*: Tish Buck's hospital stay will require greater than 2 midnights for spontaneous vaginal delivery with pre-eclampsia with severe features and uncontrolled type 2 diabetes mellitus. Time Spent in Patient Care: Greater than 35 minutes Coding Level of Care Code Acute Tellers Supervisor for g Fwd Exam Detailed Diagnoses Type 2 diabetes mellitus E11.9 Pre-eclampsia, severe O14.10 (vaginal after ) O34.219 Spontaneous vaginal delivery O80 Methamphetamine abuse F15.10 Hyponatremia E87.1
[2021-09-12] MEDS: ibuprofen 800 mg tablet PO (20:54)
[2021-09-12] MEDS: acetaminophen 325 mg Tablet 650 MG PO (21:20)
[2021-09-12] MEDS: HYDROcodone-acetaminophen 10-325 mg Tablet 1 TAB PO (21:21)
[2021-09-12] MEDS: hyDROXYzine 25 mg Capsule 50 MG PO (21:21)
[2021-09-12] MEDS: labetalol 5 mg/mL SDV 20mL 20 MG IVP (21:32)
[2021-09-12] MEDS: fentaNYL 50 mcg/mL INJ 2mL 25 MCG IVP (21:52)
[2021-09-12 21:53] LABS: Urine Creatinine 38 mg/dL (28-217)
[2021-09-12 22:07] LABS: UPRO/UCREAT Ratio 0.92 mg/mg CR; Urine Protein Random 35 mg/dL
[2021-09-12 22:13] LABS: Amphetamines Screen Urine Positive (Negative); Barbiturates Screen Urine Negative (Negative); Benzodiazepines Screen Urine Negative (Negative); Cocaine Screen Urine Negative (Negative); Opiate Screen Urine Negative (Negative); PCP Screen Urine Negative (Negative); THC Screen Urine Negative (Negative)
[2021-09-12 22:17] LABS: Alanine Aminotransferase 16 U/L (0-33); Albumin Level 3.1 g/dL (3.5-5.2); Alkaline Phosphatase 112 IU/L (35-105); Anion Gap 16.5 (5-19); Aspartate Amino Transferase 22 U/L (0-32); Blood Urea Nitrogen 15 mg/dL (6-20); Carbon Dioxide 20 mmol/L (22-29); Chloride 101 mmol/L (98-107); Glomerular Filtration Rate 119.9 mL/min (90-130); Glucose 207 mg/dL (65-115); Osmolality Calculated 283 mOsm/kg (285-295); Potassium 4.5 mmol/L (3.5-5.1); Sodium 133 mmol/L (136-145); Total Bilirubin 0.2 mg/dL (0.15-1.2); Total Protein 6.1 g/dL (6.6-8.7)
[2021-09-12 22:22] LABS: Basophils % 0.2 %; Eosinophils % 0.1 %; Hematocrit 37.1 % (37.0-47.0); Hemoglobin 11.9 g/dL (11.5-15.3); Lymphocytes # 1.4 10^3/uL (0.8-4.8); Mean Corpuscular HGB Conc 32.1 g/dL (30.0-36.0); Mean Corpuscular Volume 87.3 fl (81-99); Mean Platelet Volume 11.6 fL (7.4-10.4); Monocytes # 0.7 10^3/uL (0.2-0.9); Monocytes % 4.6 %; Neutrophils # 13.75 10^3/uL (1.8-7.7); Neutrophils % 85.7 %; Nucleated Red Blood Cells % 0 %; Platelet Count 236 10^3/cmm (130-400); Red Blood Count 4.25 10^6/uL (4.1-5.3); Red Cell Distribution Width 13.1 % (12.1-15.1); White Blood Count 16.1 10^3/uL (4.0-10.0)
[2021-09-12] MEDS: magnesium sulfate premix 4 GM/100 ML PREMIX IV (22:55)
[2021-09-12] MEDS: magnesium sulfate premix 20 GM/500 ML BAG IV (23:15)
[2021-09-12] MEDS: insulin lispro 100 unit/1 mL SUBCUT (23:30)
[2021-09-12 23:48] LABS: Hepatitis B Surface Antigen Non-Reactive (Nonreactive)
[2021-09-12 23:50] LABS: Rubella IgG 31.9 IU/mL (0.0-10.0)
[2021-09-13] VITALS (176 sets, daily range): BP systolic 114–149; BP diastolic 71–100; PULSE 68–113; RESP 12–18; TEMP 36.7; O2SAT 99–100
[2021-09-13 00:04] LABS: Rapid Plasma Reagin Syphilis Nonreactive (Nonreactive)
[2021-09-13 00:06] LABS: HIV 1 & 2 Antibody Non-Reactive (Non-Reactiv); HIV 1 & 2 Antigen Non-Reactive (Non-Reactiv)
[2021-09-13 02:50] LABS: Glucose Point of Care 72 mg/dL (70-110)
[2021-09-13] MEDS: dextrose 5%-lactated ringers 1,000 ML 75 ML IV (03:39)
[2021-09-13] MEDS: dextrose 5%-sod chloride 0.9% 1,000 ML 75 ML IV (05:15)
[2021-09-13 05:27] LABS: Alanine Aminotransferase 15 U/L (0-33); Albumin Level 2.6 g/dL (3.5-5.2); Alkaline Phosphatase 92 IU/L (35-105); Aspartate Amino Transferase 26 U/L (0-32); Blood Urea Nitrogen 13 mg/dL (6-20); Carbon Dioxide 16 mmol/L (22-29); Chloride 104 mmol/L (98-107); Globulin 2.6 g/dL (1.3-4.6); Glomerular Filtration Rate 119.9 mL/min (90-130); Glucose 79 mg/dL (65-115); Osmolality Calculated 271 mOsm/kg (285-295); Sodium 131 mmol/L (136-145); Total Bilirubin 0.2 mg/dL (0.15-1.2); Total Protein 5.2 g/dL (6.6-8.7)
[2021-09-13 05:30] LABS: Glucose Point of Care 60 mg/dL (70-110)
[2021-09-13 05:35] LABS: Anion Gap 15.1 (5-19); Potassium 4.1 mmol/L (3.5-5.1)
[2021-09-13 06:14] LABS: Magnesium Level (OB Only) 6.1 mg/dL (5.0-7.5)
--- NOTE | 2021-09-13 06:47 | PC.NURSE ---
Summary of Physician Communication 09/12/212205 Call received from Dr. Barlow to obtain orders for management of preeclampsia. MD ordered the following: Place dominguez catheter, strict intake and output, NPO, Magnesium 4g bolus then 2g/hr, Establish baseline for lung sounds (all cross front and back) and reflexes, apply SCDs, check first magnesium level 6 hours after start of magnesium bolus and call results, call MD with any severe blood pressures, call MD one hour after magnesium is started. 09/13/21 [address] Barlow to report the followin mL urine output, last blood pressure 134/89 at 2350, lungs clear in all cross front and back, SCDs are in place, Baseline reflexes: patellar = normal, brachioradialis = diminished but normal. 09/13/[address] Macedo to report blood glucose level of 72. MD ordered to change fluids to D5LR, recheck BG in 1 hour, if good at that time check again in 2 hours. 09/13/[address] Macedo to report blood glucose level of 60. MD ordered to change fluids to D5NS due to low sodium level, give 100 mL bolus of D10NS, recheck BG 15 minutes after bolus complete, and to draw a CMP at 0500. Call MD with result of next BG level. 09/13/[address] Macedo to report blood glucose level of 100. MD ordered a recheck at 0730. 09/13/[address] Barlow to report magnesium lab result of 6.1. MD ordered to decrease magnesium to 1.5 g/hr. Next magnesium level to be drawn at 1100 and results to be called to MD no later than 1130.
[2021-09-13 07:09] LABS: Glucose Point of Care 100 mg/dL (70-110)
[2021-09-13 07:27] LABS: Glucose Point of Care 114 mg/dL (70-110)
[2021-09-13] MEDS: docusate sodium 100 mg Capsule PO (08:12)
[2021-09-13] MEDS: magnesium sulfate premix 20 GM/500 ML BAG IV (08:12)
[2021-09-13] MEDS: ibuprofen 800 mg tablet PO (08:12)
[2021-09-13] MEDS: prenatal vitamin Capsule 1 CAP PO (08:12)
--- NOTE | 2021-09-13 09:10 | PM.OBGYPN ---
STATION DETECTIVE Subjective Subjective: Interval history: Feeling ok this morning. Denies SOB, chest pain, change in vision, RUQ pain, headaches, worsening edema, LE pain. She is unsure how her bleeding has been. No trial of ambulation and no PO trial as she is on IV Mg with Queen in place. Reports pain is controlled however she has primarily been sleeping. Asking how baby is doing as she has not had baby at bedside. Baby is formula feeding. Reports she has been on depo in past for control and is wondering if she can get a tubal ligation. She would like control . States she has been through several rehab programs- [facility] and [facility] as a teen. Reports her main barrier to staying clean from meth is loneliness. She is currently living with a family member and states FOArchie is not involved in her life. She does not have custody of either of her other children- her first child lives with her ex- and her 2nd child has been adopted out. Nursing reports scant bleeding and pain well controlled. Vitals/I&O/Wt Last Vital Signs Pulse 80 09/13/21 09:07 Resp 14 09/13/21 06:00 BP 142/96 09/13/21 09:05 Pulse Ox 100 09/13/21 09:07 09/12/21 09/13/21 09/13/21 22:59 06:59 14:59 Intake Total 581.25 / 581.25 1355.507 / 1936.757 68.125 / 68.125 Output Total 1775 / 1775 630 / 630 Balance 581.25 / 581.25 -419.493 / 161.757 -561.875 / -561.875 Physical Exam Const: COMMON NORMALS: no acute distress and patient oriented x3 Resp: COMMON NORMALS: normal respiratory effort and clear to auscultation bilaterally AUSCULTATION: clear to auscultation bilaterally Cardio: COMMON NORMALS: regular rate, regular rhythm, No murmurs present (Cardio) and Peripheral pulses 2+ throughout RATE: regular rate RHYTHM: regular rhythm PERIPHERAL PULSES: Peripheral pulses 2+ throughout GI: COMMON NORMALS: Soft to palpation and non-tender PALPATION: Yes Soft to palpation : OTHER: Uterine fundus firm and at the umbilicus, non-tender to palpation. Extremity: NARRATIVE EXTREMITY EXAM: SCDs in place, trace pitting edema BLE when SCDs removed Neuro: COMMON NORMALS: patient oriented x3, moves all extremities and no focal motor deficits Urinary Catheter Management: Queen Latex: Cath Placed During This Visit: yes Reason for Continuing Indwelling Catheter: Accurate Measurement of Urinary Output in Critically Ill Patients Urinary Catheter Date of Insertion: 09/13/21 Urinary Catheter Time of Insertion: 23:15 Data : 09/12/21 20:45 09/13/21 05:00 A&P Assessment and plan (1) Spontaneous vaginal delivery: 25yo G4 now P3 PPD#1 admitted after in [facility] ED with no care. labs unremarkable, Blood type A+. Plan to discuss pt preferred control further tomorrow- she is considering her options and may pursue tubal ligation outpatient. CBC ordered for 11AM. Status: Acute (2) Pre-eclampsia, severe: Management per Dr. Barlow who is consulting. Remains on IV Mg, NPO, Queen catheter in place. BPs have been normal or mild range since starting Mg infusion. Status: Acute (3) Type 2 diabetes mellitus: With some hypoglycemia- asymptomatic overnight following 4u novolog SSI for glucose of 207. Tx with 100 mL bolus D10 NS. Continue fluids 75cc/hr of D5NS. Q4hr glucose checks while NPO with Q4hr SSI- decreased parameters for low dose SSI while NPO. Status: Acute (4) Hyponatremia: Decreased from 133 to 131. Asymptomatic. Changed IV fluids to D5NS at 75cc/hr. Repeat CMP at 11AM. Status: Acute (5) Methamphetamine abuse: Discussed cessation. Status: Acute Attestations Medical Necessity Statement*: Tish Buck's hospital stay will require greater than 2 midnights for spontaneous vaginal delivery with pre-eclampsia with severe features and uncontrolled type 2 diabetes mellitus. Coding Level of Care Code Acute Biomedical Equipment Tech for [facility] Diagnoses Spontaneous vaginal delivery O80 Pre-eclampsia, severe O14.10 Type 2 diabetes mellitus E11.9 Hyponatremia E87.1 Methamphetamine abuse F15.10
--- NOTE | 2021-09-13 10:10 | PC.NURSE ---
PT NOTE BAUTISTA Davis in room following DFS and WPPD leaving. Patient screaming and stating she is going to leave. Patient educated multiple times regarding the risks associated with discontinuing magnesium and leaving the hospital. Patient states if you don't take this stuff off me I'm going to start ripping it out This nurse spoke with patient and asked her if it would be okay to go and speak with her physicians. Patient states she doesn't care what they say that she is leaving no matter what. See OB Communication regarding notification to Dr. Macedo and Dr. Barlow Dairy Manufacturing Technologist back to room after calling. Patient states why the fuck are you watching me cry? . Dairy Manufacturing Technologist and BAUTISTA Davis educated patient again regarding the risks of discontinuing medications and patient demanded that her IV and catheter be removed. Dr. Macedo to bedside and also discussed risks of leaving AMA. Patient continued to demand to leave and states you cannot hold me here if i want to leave Catheter and IV removed per patient's demands. Dairy Manufacturing Technologist assisted patient out of bed and assisted patient to get dressed. Patient then ambulated to chair in room without difficulty. Dairy Manufacturing Technologist out to desk and observed patient in hallway. Patient assisted to [facility] when she then requested that senior medical writer leave. This nurse educated patient again regarding ecclamptic seizures and signs and symptoms to watch for. Dairy Manufacturing Technologist also discussed that if patient saturated more than 1 pad an hour for 2 hours in a row that she should return to ER immediately. Patient verbalized understanding.
--- NOTE | 2021-09-13 10:56 | P.DS_ITS ---
Discharge Providers COUNCIL ON AGING DIRECTOR Date of Admission: 09/12/21 20:09 Date of Discharge: 09/13/21 Attending Provider at Admission: Carol Macedo DO Attending Provider at Discharge: Carol Macedo DO Consults: Dr. Barlow Primary COUNCIL ON AGING DIRECTOR: None- no care Primary Care Provider: Hebert Rahman MD Diagnoses at Discharge Discharge Diagnosis (1) Spontaneous vaginal delivery: Status: Acute (2) Pre-eclampsia, severe: Status: Acute (3) Type 2 diabetes mellitus: Status: Acute (4) Hyponatremia: Status: Acute (5) Methamphetamine abuse: Status: Acute Reason for Visit Reason for Visit: delivery Hospital Course Hospital Course Patient underwent / precipitously on 09/12 at 1716 in [facility] ED. Delivered female EGA 35w3d with reported Apgars 7/9 and requiring only routine resuscitation. course was complicated by development of pre-eclampsia with severe features, hyponatremia, and uncontrolled Type 2 DM. Pt had several severe range BPs requiring tx with Labetalol IV. UDS found to be positive for Meth. Dr. Barlow was consulted for management of pre-eclampsia with severe features. She was started on Mg infusion for treatment and SSI for Type 2 DM. Overnight her BPs improved to mild range elevations. She did have hypoglycemia down to 60 on fingerstick glucose requiring tx with 100cc D10NS with resolution of hypoglycemia. On 09/13/21 at approx 10:15AM I was called and advised patient was insisting on leaving AMA after losing custody of . I arrived and discussed with patient and discussed risks of leaving AMA with her diagnoses and elevated blood pressures including but not limited to seizures and . Patient indicated understanding, reports she just wants to be at home, and still insisted on leaving AMA, signed AMA form and ambulated out of unit after removal of IV. Information Peripartum Data: Infant Delivery Method: Vaginal Physical Exam Narrative: Exam from earlier encounter on 09/13/21 Const COMMON NORMALS:?no acute distress and patient oriented x3 Resp COMMON NORMALS:?normal respiratory effort and clear to auscultation bilaterally AUSCULTATION:?clear to auscultation bilaterally Cardio COMMON NORMALS:?regular rate, regular rhythm, No murmurs present (Cardio) and Peripheral pulses 2+ throughout RATE:?regular rate RHYTHM:?regular rhythm PERIPHERAL PULSES:?Peripheral pulses 2+ throughout GI COMMON NORMALS:?Soft to palpation and non-tender PALPATION:?Yes Soft to palpation OTHER: Uterine fundus firm and at the umbilicus, non-tender to palpation. Extremity NARRATIVE EXTREMITY EXAM: SCDs in place, trace pitting edema BLE when SCDs removed Neuro COMMON NORMALS:?patient oriented x3, moves all extremities and no focal motor deficits Urinary Catheter Management: Queen Latex: Cath Placed During This Visit: yes Reason for Continuing Indwelling Catheter: Accurate Measurement of Urinary Output in Critically Ill Patients Urinary Catheter Date of Insertion: 09/13/21 Urinary Catheter Time of Insertion: 23:15 History History History 4 Term 1 Miscarriages/Ectopic 1 2 Living Children 3 Other History: 1st delivery in 2015- Induced at 39 wks 2nd delivery at [facility] in 2019- due to breech presentation with labor 3rd delivery- delivery 09/12/21 with labor Discharge Data Studies Completed and Pending Pending at discharge Category Date Time Status Chlamydia Trachomatis MICHAEL Routine Lab 09/12/21 20:40 Received Complete Blood Count w/Auto Timed Lab 09/13/21 11:00 Ordered Comprehensive Metabolic Panel Timed Lab 09/13/21 11:00 Ordered Neisseria Gonorrhoeae MICHAEL Routine Lab 09/12/21 20:40 Received Laboratory Results WBC 16.1 10^3/uL (4.0-10.0) H 09/12/21 20:45 RBC 4.25 10^6/uL (4.1-5.3) 09/12/21 20:45 Hgb 11.9 g/dL (11.5-15.3) 09/12/21 20:45 Hct 37.1 % (37.0-47.0) 09/12/21 20:45 MCV 87.3 fl (81-99) 09/12/21 20:45 MCH 28.0 pg (28.0-34.0) 09/12/21 20:45 MCHC 32.1 g/dL (30.0-36.0) 09/12/21 20:45 RDW 13.1 % (12.1-15.1) 09/12/21 20:45 Plt Count 236 10^3/cmm (130-400) 09/12/21 20:45 MPV 11.6 fL (7.4-10.4) H 09/12/21 20:45 Neut % (Auto) 85.7 % 09/12/21 20:45 Lymph % (Auto) 9.0 % 09/12/21 20:45 Sibley % (Auto) 4.6 % 09/12/21 20:45 Eos % (Auto) 0.1 % 09/12/21 20:45 Baso % (Auto) 0.2 % 09/12/21 20:45 Neut # (Auto) 13.75 10^3/uL (1.8-7.7) H 09/12/21 20:45 Lymph # (Auto) 1.4 10^3/uL (0.8-4.8) 09/12/21 20:45 Sibley # (Auto) 0.7 10^3/uL (0.2-0.9) 09/12/21 20:45 Eos # (Auto) 0.0 10^3/uL (0.0-0.8) 09/12/21 20:45 Baso # (Auto) 0.0 10^3/uL (0.0-0.1) 09/12/21 20:45 Nucleated RBC % (auto) 0 % 09/12/21 20:45 Nucleated RBCs # 0.0 /100WBC 09/12/21 20:45 Sodium 131 mmol/L (136-145) L 09/13/21 05:00 Potassium 4.1 mmol/L (3.5-5.1) 09/13/21 05:00 Chloride 104 mmol/L (98-107) 09/13/21 05:00 Carbon Dioxide 16 mmol/L (22-29) L 09/13/21 05:00 Anion Gap 15.1 (5-19) 09/13/21 05:00 BUN 13 mg/dL (6-20) 09/13/21 05:00 Creatinine 0.6 mg/dL (0.5-0.9) 09/13/21 05:00 GFR Calculation 119.9 mL/min (90-130) 09/13/21 05:00 Glucose 79 mg/dL (65-115) 09/13/21 05:00 POC Glucose 114 mg/dL (70-110) H 09/13/21 07:20 Calculated Osmolality 271 mOsm/kg (285-295) L 09/13/21 05:00 Calcium 8.0 mg/dL (8.5-10.5) L 09/13/21 05:00 Magnesium 6.1 mg/dL (5.0-7.5) 09/13/21 05:00 Total Bilirubin 0.2 mg/dL (0.15-1.2) 09/13/21 05:00 AST 26 U/L (0-32) 09/13/21 05:00 ALT 15 U/L (0-33) 09/13/21 05:00 Alkaline Phosphatase 92 IU/L (35-105) 09/13/21 05:00 Total Protein 5.2 g/dL (6.6-8.7) L 09/13/21 05:00 Albumin 2.6 g/dL (3.5-5.2) L 09/13/21 05:00 Globulin 2.6 g/dL (1.3-4.6) 09/13/21 05:00 U Random Total Protein 35 mg/dL 09/12/21 20:40 Urine Creatinine 38 mg/dL (28-217) 09/12/21 20:40 Protein/Creatinin Ratio 0.92 mg/mg CR 09/12/21 20:40 Urine Opiates Screen Negative ng/mL (Negative) 09/12/21 20:40 Ur Barbiturates Screen Negative ng/mL (Negative) 09/12/21 20:40 Ur Phencyclidine Scrn Negative ng/mL (Negative) 09/12/21 20:40 Ur Amphetamines Screen Positive ng/mL (Negative) H 09/12/21 20:40 U Benzodiazepines Scrn Negative ng/mL (Negative) 09/12/21 20:40 Urine Cocaine Screen Negative ng/mL (Negative) 09/12/21 20:40 U Marijuana (THC) Screen Negative ng/mL (Negative) 09/12/21 20:40 RPR Nonreactive (Nonreactive) 09/12/21:45 Hep Bs Antigen Non-reactive (Nonreactive) 09/12/21 22:45 HIV 1&2 Ab & HIV 1 Ag Non-reactive (Non-Reactiv) 09/12/21 22:45 HIV 1&2 Antibody Non-reactive (Non-Reactiv) 09/12/21 22:45 Rubella IgG Antibody 31.9 IU/mL (0.0-10.0) H 09/12/21 22:45 Blood Type A Positive 09/12/21 20:45 Rho(D) Type Positive 09/12/21 20:45 Vitals Last Vital Signs Pulse 91 09/13/21 10:32 Resp 14 09/13/21 06:00 BP 145/97 09/13/21 10:29 Pulse Ox 100 09/13/21 10:32 Discharge Plan Discharge Patient Disposition: Left Against Medical Advice Prescriptions: No Action Lantus Solostar U-100 Insulin 0RF Rx Instructions: 12 units at bedtime Novolog Flexpen U-100 Insulin 0RF Rx Instructions: Sliding scale with meals Discharge Orders: Discharge Order (Routine); Ordered 09/13/21 Ordered By: Carol Macedo Discharge Attestations COUNCIL ON AGING DIRECTOR Time Spent in Discharge Care*: greater than 30 min Coding Level of Care Code Acute Absorption Plant Operator Helper for Chg Fwd Diagnoses Spontaneous vaginal delivery O80 Pre-eclampsia, severe O14.10 Type 2 diabetes mellitus E11.9 Hyponatremia E87.1 Methamphetamine abuse F15.10
== END 2021-09-13 10:49 | disposition left against medical advice (07) | DRG 776 ==
PROVIDERS: Obstetrics & Gynecology; Admitting Provider Family Medicine; PCP Family Medicine; Visit Provider Family Medicine
DX: O14.15 Severe pre-eclampsia, complicating the puerperium (principal); E87.1 Hypo-osmolality and hyponatremia; O24.13 Pre-existing type 2 diabetes mellitus, in the puerperium; E11.65 Type 2 diabetes mellitus with hyperglycemia; O99.335 Smoking (tobacco) complicating the puerperium; F17.210 Nicotine dependence, cigarettes, uncomplicated; O99.325 Drug use complicating the puerperium; F15.10 Other stimulant abuse, uncomplicated; Z79.4 Long term (current) use of insulin; O90.89 Other complications of the puerperium, not elsewhere classified
CPT/HCPCS: 12345; 36415; 36416; 51702; 59409; 80053; 80306; 82570; 82962; 83735; 84156; 85025; 86592; 86762; 86900; 87340; 87491; 87591; 87806; 96372; 96374; 99211; J1815; J3010; J3475; J3490; J7799

== ENCOUNTER 2022-03-13 21:35 | Emergency (ER) | payer MEDICAID, SELFPAY ==
[2022-03-13 21:47] VITALS: BP 161/118; PULSE 85; RESP 17; TEMP 36.7; O2SAT 99; BMI 19.2
--- NOTE | 2022-03-13 22:53 | ED_ITS ---
HPI - Skin/Abscess/Foreign Bdy General: Chief complaint: Skin/Abscess/Foreign Body Stated complaint: Chin swelling, hurting Time Seen by Provider: 03/13/22 22:42 Source: patient Mode of arrival: ambulatory Limitations: no limitations History of Present Illness: 18-year-old female who states that she has had an abscess to her chin that she has noticed over the last few days. States she does have swelling and pain. States her pain is currently a 5 out of 10. She denies any left leg swelling Associated symptoms: Deny chills, fever(s), nausea or vomiting Review of Systems Const: Denies: fever(s), chills, body aches or change in appetite Eyes: Denies: blurry vision or eye discomfort ENMT: Denies: throat pain or dental pain Card: Denies: chest pain Resp: Denies: dyspnea GI: Denies: abdominal pain, nausea, vomiting or diarrhea : Denies: dysuria Musc: Denies: neck pain or back pain Skin/Breast: Denies: rash Neuro: Denies: headache(s) Psych: Denies: depression Emanuel/Lymph: Denies: easy bruising All/Imm: Denies: urticaria PFSH ED PFSH: Medical History Borderline personality disorder delivery delivered G tube feedings Social History Smoking and tobacco status: current every day smoker Alcohol intake: unknown Other details last substance use: Reports last use 1 week ago- methamphetamine Female Reproductive History: Date of last menstrual period: 02/12/22 Physical Exam Const: COMMON NORMALS: no acute distress, patient oriented x3 and healthy appearing HENMT: COMMON NORMALS: normocephalic and atraumatic HEAD & SCALP: normo cephalic and atraumatic OTHER: 2 cm abscess to chin Eye: COMMON NORMALS: Equal, round and reactive pupils present and EOMs intact bilaterally PUPIL: Yes Equal, round and reactive pupils present Neck/C-Spine: COMMON NORMALS: full ROM and supple Chest: COMMONS NORMALS: normal inspection of the chest Resp: COMMON NORMALS: normal respiratory effort Cardio: COMMON NORMALS: regular rate and No murmurs present (Cardio) RATE: regular rate GI: INSPECTION: Yes normal to inspection Extremity: COMMON NORMALS: normal to inspection and full ROM Neuro: COMMON NORMALS: patient oriented x3, moves all extremities and no focal motor deficits Psych: COMMON NORMALS: mental status grossly normal, Normal thought process present and cooperative THOUGHT PROCESS: Normal thought process present Skin: COMMON NORMALS: no rashes or lesions noted GENERAL SKIN EXAM: no rashes or lesions noted Procedures Abscess I/D Site: face Local Anesthetic: lidocaine 1% Amount of anesthesia used (mL): 5 Technique: incised with #11 blade Packing used?: none Course Vital Signs: Vital signs: Vital Signs Temperature 98.1 F 03/13/22 21:47 Pulse Rate 85 03/13/22 21:47 Respiratory Rate 17 03/13/22 21:47 Blood Pressure 161/118 03/13/22 21:47 Pulse Oximetry 99 03/13/22 21:47 Oxygen Delivery Me thod 03/13/22 21:47 MDM - Skin/Abscess/Foreign Bdy Medicial Decision Making Patient presents here with abscess to chin abscess was incised and drained patient stable for discharge patient follow-up PCP and return if worsening. Discharge Plan Discharge Patient Disposition: Home Clinical Impression: Abscess of skin or subcutaneous tissue Condition: Stable Prescriptions: New Bactrim DS 800-160 mg tablet 1 tab PO BID 10 Days Qty: 20 0RF No Action Lantus Solostar U-100 Insulin Rx Instructions: 12 units at bedtime Novolog Flexpen U-100 Insulin Rx Instructions: Sliding scale with meals Discharge Orders: Discharge ED (Routine); Ordered 03/13/22 Ordered By: Maira Olvera Referrals: Hebert Rahman MD [Primary Care Provider] - 1-3 days Discharge Diet: Advance as tolerated Discharge Activity: Resume usual activity Patient Instructions: Abscess (ED) Coding Level of Care Code ED Life Sciences Director for Chg Fwd Exam Comprehensive
[2022-03-13] MEDS: sulfamethoxazole-trimeth DS 160-800 mg Tablet 1 TAB PO (23:00)
[2022-03-13] MEDS: HYDROcodone-acetaminophen 7.5-325 mg Tablet 1 TAB PO (23:00)
== END 2022-03-13 23:28 | disposition home or self-care (01) ==
PROVIDERS: Emergency Provider Emergency Medicine; PCP Family Medicine
DX: L02.01 Cutaneous abscess of face (principal)
CPT/HCPCS: 10060; 99283